=== PATIENT | female | born 1970 | race Two or more races ===

== ENCOUNTER → 2024-05-31 | Outpatient (BNVA) | payer BC, SELFPAY | END | disposition home or self-care (01) | PROVIDERS: PCP Family Medicine; Referring Provider Family Medicine; Visit Provider Urology | DX: N32.81 Overactive bladder (principal); Z87.440 Personal history of urinary (tract) infections | CPT/HCPCS: 81003; 99212; G0463 ==

== ENCOUNTER → 2024-07-25 | Outpatient (CLI) | payer BC, SELFPAY ==
[2024-07-25 15:30] LABS: Misc Send Out* See Sep Rpt
[2024-07-25 16:04] LABS: Basophils % (Auto) 0 % (0-2.5); Eosinophils # (Auto) 0.1 Thou/mm3 (0.0-0.5); Eosinophils % (Auto) 2 % (0-10); Hematocrit 40.7 % (36.0-46.0); Hemoglobin 14.2 g/dL (12.0-16.0); Immature Granulocytes % (Auto) 0 % (0-0); Immature Granulocytes Auto 0.02 Thou/mm3 (0.00-0.00); Immature Reticulocyte Fraction 8.1 % (3.0-15.9); Lymphocytes % (Auto) 21 % (10-50); Mean Corpuscular HGB Conc 34.9 g/dl (31.0-37.0); Mean Corpuscular Hemoglobin 32.5 pg (25.0-35.0); Mean Corpuscular Volume 93 fL (80-100); Monocytes # (Auto) 0.4 Thou/mm3 (0.0-0.8); Monocytes % (Auto) 7 % (0-12); Neutrophils # (Auto) 3.3 Thou/mm3 (1.8-7.7); Neutrophils % (Auto) 69 % (37-80); Nucleated Red Blood Cell % 0 /100 WBC (0); Platelet Count 201 Thou/mm3 (140-440); RDW Standard Deviation 39.4 fL (36.4-46.3); Red Blood Count 4.37 Miln/mm3 (4.00-5.20); Reticulocyte % (Auto) 1.3 % (0.5-1.5); Reticulocyte Absolute Auto 55.1 Biln/L (25.0-75.0); Reticulocyte Hgb Content 36.4 pg (28.0-35.0); White Blood Count 4.7 Thou/mm3 (3.6-11.0)
[2024-07-25 16:20] LABS: Glucose Estimated Average 114 mg/dL (80-131); Hemoglobin A1C 5.6 % Hgb (4.8-6.0)
[2024-07-25 16:25] LABS: Alanine Aminotransferase 10 U/L (10-49); Albumin, Serum 4.7 gm/dL (3.5-5.0); Albumin/Globulin Ratio 1.6 (1.2-2.2); Alkaline Phosphatase 90 U/L (46-116); Anion Gap 8 (7-16); Aspartate Amino Transferase 22 U/L (0-34); BUN/Creatinine Ratio 14 Ratio (12-20); Bilirubin,Total 0.5 mg/dL (0.3-1.2); Blood Urea Nitrogen 10 mg/dL (9-23); Calcium 9.1 mg/dL (8.3-10.6); Calcium (Corrected) 9.1 mg/dL (8.5-10.1); Carbon Dioxide 27.2 mMol/L (20.0-31.0); Chloride 104 mMol/L (98-107); Creatinine (Component) 0.7 mg/dL (0.6-1.3); Glucose 102 mg/dL (74-106); Osmolality,Calculated 276 (275-295); Potassium 3.6 mMol/L (3.4-5.1); Sodium 139 mMol/L (136-145); Thyroid Stimulating Hormone 0.58 uIU/mL (0.55-4.78); Total Protein 7.7 gm/dL (5.7-8.2); eGFR > 60 See Note
[2024-07-25 16:30] LABS: Vitamin B12 297 pg/mL (211-911); Vitamin D 25 Hydroxy Total 17.9 ng/mL (7.3-40.2)
[2024-07-25 16:31] LABS: Ferritin 50 ng/mL (7.3-270.7); Iron 36 mcg/dL (50-170); Percent Iron Saturation 9 % (20-55); T4 (Thyroxine) 8.8 mcg/dL (4.5-10.9); Total Iron Binding Capacity 367 mcg/dL (250-425); Unsaturated Iron Binding 331 (225-295)
[2024-08-01 06:36] LABS: Homocysteine* 7.3 umol/L (<10.4); Methylmalonic Acid, GC/MS/MS* 167 nmol/L (55-335); Thyroid Peroxidase Antibodies* 3 IU/mL (<9); Vitamin A (Retinol)* 47 mcg/dL (38-98)
[2024-08-05 07:26] LABS: Vitamin B1 (Thiamine)* 16 nmol/L (8-30)
== END | disposition home or self-care (01) ==
LOC: COPL 15:11
PROVIDERS: PCP Nurse Practitioner Family; Referring Provider Nurse Practitioner Family; Visit Provider Nurse Practitioner Family
DX: D64.9 Anemia, unspecified (principal); R53.83 Other fatigue; E56.9 Vitamin deficiency, unspecified
CPT/HCPCS: 36415; 80053; 82306; 82607; 82728; 83036; 83090; 83540; 83550; 83921; 84425; 84436; 84443; 84590; 85025; 85046; 86376

== ENCOUNTER → 2024-08-09 | Outpatient (CLI) | payer BC, SELFPAY ==
--- NOTE | 2024-08-09 13:00 | XR_ITS ---
Examination: Ultrasound soft tissue extremity left groin TECHNIQUE: Grayscale sonographic images soft tissue left groin Date and time: August 09, 2024 1339 hours INDICATIONS: Palpable lump left groin noticed beginning one year ago. FINDINGS: Soft tissue mass in the left groin 2.1 x 0.6 x 1.8 cm consistent with lymph nodes IMPRESSION: Consider CT scan pelvis post intravenous contrast follow-up to assess for pelvic lymphadenopathy
== END | disposition home or self-care (01) ==
LOC: CDIM 12:48
PROVIDERS: PCP Family Medicine; Referring Provider Nurse Practitioner Family; Visit Provider Nurse Practitioner Family
DX: S76.811A Strain of other specified muscles, fascia and tendons at thigh level, right thigh, initial encounter (principal); X58.XXXA Exposure to other specified factors, initial encounter
CPT/HCPCS: 76882

== ENCOUNTER → 2024-09-10 | Outpatient (CLI) | payer BC, SELFPAY ==
[2024-09-09 17:52] LABS: HCG Qualitative,Urine Negative
--- NOTE | 2024-09-10 14:00 | XR_ITS ---
Examination: CT pelvis with intravenous contrast. 2-D sagittal and coronal reconstructions. Date and time of exam:September 10, 2024 1351 hours INDICATIONS: Palpable lump in the left groin 4 years CTDI: vol (mGy) :7.08 DLP: (mGycm) : 234 Technique: Multiple 3 mm axial sections of the pelvis have been obtained with the 64 slice high resolution scanner. 2-D sagittal and coronal reconstructions. Low dose protocols were performed. One or more of the following dose reduction techniques were used; automated exposure control, adjustment of the mA and/or KV according to patient size, use of iterative reconstruction technique. Findings: Retroverted uterus No adnexal mass Urinary bladder intact No groin lymphadenopathy or mass depicted IMPRESSION: No groin lymphadenopathy or mass depicted Suggest repeat ultrasound soft tissue left groin in 3 months as clinically warranted
== END | disposition home or self-care (01) ==
PROVIDERS: Referring Provider Nurse Practitioner Family; Visit Provider Nurse Practitioner Family
DX: R19.09 Other intra-abdominal and pelvic swelling, mass and lump (principal); Z32.00 Encounter for pregnancy test, result unknown
CPT/HCPCS: 72193; 81025; A4649; Q9967